=== PATIENT | male | born 1980 | race Caucasian/White ===

== ENCOUNTER 2021-10-08 00:01 | Emergency (ER) | payer OTHER ==
[~2021-10-08 00:01] MED LIST: AUGMENTIN 875-1 EACH PO; CEFUROXIME500 MG PO; CLEOCIN HCL150 MG PO; CLEOCIN HCL300 MG PO; IBUPROFEN800 MG PO; LODINE CAP 300300 MG PO
[2021-10-08] MEDS ORDERED: NEO-SYNEPHRINE15 ML (01:55)
[2021-10-08] MEDS ORDERED: ZYRTEC10 M2 PO (01:55)
[2021-10-08] MEDS ORDERED: LODINE CAP 300300 MG PO (01:55)
== END 2021-10-08 02:15 | disposition home or self-care (01) ==
LOC: ER1 00:01
DX: J01.90 Acute sinusitis, unspecified (principal); J45.909 Unspecified asthma, uncomplicated; G43.909 Migraine, unspecified, not intractable, without status migrainosus; F17.210 Nicotine dependence, cigarettes, uncomplicated
CPT/HCPCS: 99283